=== PATIENT | female | born 1995 | race Caucasian/White ===

== ENCOUNTER 2022-08-13 10:28 | Emergency (ER) | payer OTHER, SELFPAY ==
[2022-08-13 10:36] VITALS: BP 117/79; PULSE 103; RESP 18; TEMP 37.2; O2SAT 100
--- NOTE | 2022-08-13 11:07 | ED.URI ---
HPI - URI/Sore Throat General Chief Complaint: Upper Respiratory Infection Stated Complaint: Body Aches/Congestion Time Seen by Provider: 08/13/22 11:07 Source: patient and RN notes reviewed Mode of arrival: ambulatory Limitations: no limitations History of Present Illness HPI Narrative: 27-year-old female presenting for complaint of body aches, onset yesterday. She denies any associated sinus congestion, drainage, cough, shortness breath, wheezing, nausea, vomiting, diarrhea, fevers or chills. She has not taken anything for symptoms. She denies sick contacts. Related Data Home Medications Medication Instructions Recorded Confirmed venlafaxine 75 mg capsule,extended 75 mg PO DAILY 08/13/22 08/13/22 release 24 hr Allergies Allergy/AdvReac Type Severity Reaction Status Date / Time No Known Allergies Allergy Verified 08/13/22 10:55 Review of Systems Review of Systems: ROS per HPI Exam Narrative: GENERAL: well-appearing EYES: PERRLA, conjunctivae clear ENT: Mucous membranes moist. Missing teeth. TMs pearly ross with dull light reflex bilaterally; no tragal tenderness. Oropharynx erythematous without lesions or exudate, no drooling, no hoarseness, no trismus, uvula midline. CHEST: Clear to auscultation, breath sounds equal. No wheezing, rhonchi, rales, or stridor. No respiratory distress, speaks in full sentences. HEART: Regular rate and rhythm. No murmur heard. SKIN: Warm, dry, no rash. NEURO: Alert and oriented x3. PSYCH: flat affect Course Course Emergency Course: Patient is aware of diagnosis, understands and agrees to treatment plan. Anticipatory guidance given. Patient agrees to follow-up as directed and is aware of reasons to seek care at the emergency department. Portions of this record may have been created with voice recognition software Level of Care: Express Care Visit Vital Signs Vital signs: Vital Signs Temperature 99 F 08/13/22 10:36 Pulse Rate 103 H 08/13/22 10:36 Respiratory Rate 18 08/13/22 10:36 Blood Pressure 117/79 08/13/22 10:36 Pulse Oximetry 100 08/13/22 10:36 Oxygen Delivery Room Air 08/13/22 10:36 Temperature 99 F 08/13/22 10:36 Pulse Rate 103 H 08/13/22 10:36 Respiratory Rate 18 08/13/22 10:36 Blood Pressure 117/79 08/13/22 10:36 Pulse Oximetry 100 08/13/22 10:36 Oxygen Delivery Room Air 08/13/22 10:36 reviewed MDM - URI/Sore Throat MDM Narrative Medical decision making narrative: flu neg covid neg results reviewed with patient. Advised supportive measures and signs/symptoms to go to the ER. Pt is appropriate for outpt treatment and f/u. Differential Diagnosis Differential diagnosis: Likely upper respiratory infection, sinusitis and viral infection Lab Data Labs: Influenza A Screen Negative Reference Range: Negative Influenza B Screen Negative Reference Range: Negative Discharge Plan Discharge Clinical Impression: Viral infection Patient Disposition: Home, Self-Care Condition: Stable Instructions: Viral Syndrome (ED) Additional Instructions: Rest. Drink plenty of fluids. Tylenol and ibuprofen every 8 hours as needed for pain/fever [id number] medications for symptoms as needed. Follow up with your primary care provider as needed in 1-2 weeks Go to the ER for worsening symptoms or concerns Prescriptions: No Action venlafaxine 75 mg capsule,extended release 24hr 75 mg PO DAILY Follow-up/Referrals: PHYSICIAN NOT ON STAFF,NONSTAFF [Primary Care Provider] - Stand Alone Forms: Work/School Release IP Time of Disposition: 11:37
== END 2022-08-13 11:39 | disposition home or self-care (01) ==
PROVIDERS: Emergency Provider Nurse Practitioner Family
DX: B34.9 Viral infection, unspecified (principal); Z20.822 Contact with and (suspected) exposure to COVID-19
CPT/HCPCS: 87426; 87804; 99203; C9803; G0463

== ENCOUNTER 2023-01-31 15:53 | Emergency (ER) | payer OTHER, SELFPAY ==
--- NOTE | ~2023-01-31 | XR_ITS ---
EXAM: XR knee LT min 4V DATE: 01/31/2023 16:26 HISTORY: FELL FORWARD 01/31/23. LT KNEE PAIN SINCE. . COMPARISON: None available. FINDINGS: Normal mineralization. No fracture or dislocation. No lytic or blastic lesion. Joint space s are maintained. No erosion or periosteal change. Soft tissues within normal limits. IMPRESSION: No acute osseous finding in the left knee. Reviewed, dictated and finalized at location K.
[2023-01-31 16:04] VITALS: BP 132/76; PULSE 70; RESP 14; TEMP 36.7; O2SAT 100
--- NOTE | 2023-01-31 16:14 | ED.LOWEXIN ---
HPI - Extremity Injury (Lower) General Chief Complaint: Extremity Injury, Lower Stated Complaint: pain both knees from fall History of Present Illness HPI Narrative: Patient presents with left knee pain. Patient states she slipped on some old male at work and fell landing on both knees but has discomfort to her left knee. No bruising noted no swelling noted patient reports pain with ambulation. No deformity and no open areas noted. Related Data Home Medications Medication Instructions Recorded Confirmed venlafaxine 75 mg capsule,extended 75 mg PO DAILY 08/13/22 08/13/22 release 24 hr Allergies Allergy/AdvReac Type Severity Reaction Status Date / Time No Known Allergies Allergy Verified 08/13/22 10:55 Review of Systems Review of Systems: CONSTITUTIONAL: Denies fever, chills, or sweats. EYES: Denies visual changes, redness, or discharge. ENT: Denies rhinorrhea, congestion, sore throat, or otalgia. CARDIOVASCULAR: Denies chest pain, palpitations, or edema. RESPIRATORY: Denies cough or dyspnea. GASTROINTESTINAL: Denies abdominal pain, nausea, vomiting, or diarrhea. GENITOURINARY: Denies dysuria or hematuria. SKIN: Denies rash or itching. MUSCULOSKELETAL: Denies back pain, joint pain, or myalgia. NEUROLOGIC: Denies headache, numbness, or weakness. PSYCHIATRIC: Denies anxiety or depression. PMFSH Comments At time of signature, agree with nursing past medical, surgical, social and family history. There is no relevant family history pertinent to the presenting complaint Exam Narrative: GENERAL: Well-appearing, well-nourished, and in no acute distress. HEAD: Normocephalic, atraumatic. EYES: PERRLA and EOMI. ENT: Nares clear, no rhinorrhea or epistaxis. Mucous membranes moist. NECK: Supple. CHEST: Clear to auscultation. No respiratory distress. HEART: Regular rate and rhythm. No murmur heard. Normal peripheral pulses. ABDOMEN: Soft, nontender, nondistended, normal active bowel sounds. SKIN INTACT. NO DEFORMITY. NORMAL ROM, HAS FULL EXTENSION AND FLEXION. COMPARTMENTS SOFT. NEGATIVE ANTERIOR, POSTERIOR DRAWER SIGNS ON TEST. NO CREPITUS. DP PULSE, NORMAL CAPILLARY REFILL MCMURRAYS, PAIN TO left MEDIAL AND DISTAL KNEE WITH KNEE FLEXION, INTERNAL AND EXTERNAL FOOT ROTATION.NO ERYTHEMA OR INCREASED WARMTH TO CALF. . EXTREMITIES: Normal range of motion. No edema. SKIN: Warm, dry, no rash. NEURO: No focal deficits. Alert and oriented x3. [place] Coma Scale Eye Opening: Spontaneous 4 [place] Coma Scale Motor: Obeys Commands 6 [place] Coma Scale Verbal: Oriented 5 [place] Coma Scale Total 15 Course Course Level of Care: Express Care Visit Vital Signs Vital signs: Vital Signs Temperature 36.7 C 01/31/23 16:04 Pulse Rate 70 01/31/23 16:04 Respiratory Rate 14 01/31/23 16:04 Blood Pressure 132/76 01/31/23 16:04 Pulse Oximetry 100 01/31/23 16:04 Oxygen Delivery Room Air 01/31/23 16:04 Temperature 36.7 C 01/31/23 16:04 Pulse Rate 70 01/31/23 16:04 Respiratory Rate 14 01/31/23 16:04 Blood Pressure 132/76 01/31/23 16:04 Pulse Oximetry 100 01/31/23 16:04 Oxygen Delivery Room Air 01/31/23 16:04 MDM - Extremity Injury (Lower) Imaging Data My impression: normal knee xray Radiologist's impression: no effusion no acute fracture Discharge Plan Discharge Clinical Impression: Knee contusion Patient Disposition: Home, Self-Care Condition: Stable Instructions: Knee Pain (ED) Additional Instructions: Ice to the area 20-30 minutes 4-6 times a day Elevate above heart Elastic wrap as directed for comfort for the next 5-7 days Tylenol for lesser pain Ibuprofen regularly for the next 2-3 days for the inflammation Follow-up with PCP if further problems or concerns -If you have any worsening of symptoms or any other concerns please go to the ED immediately. Prescriptions: No Action venlafaxine 75 mg capsule,extended release 24hr 75 mg PO DA
== END 2023-01-31 16:45 | disposition home or self-care (01) ==
PROVIDERS: Emergency Provider Nurse Practitioner Family
DX: S80.02XA Contusion of left knee, initial encounter (principal); W19.XXXA Unspecified fall, initial encounter
CPT/HCPCS: 73564; 99213; G0463